=== PATIENT | male | born 1995 | race Caucasian/White ===

== ENCOUNTER 2020-09-12 10:56 | Emergency (ER) | payer MEDICAID ==
[~2020-09-12] VITALS: Ht 182.9 cm; Wt 93.4 kg
[2020-09-12 11:00] VITALS: BP 153/93
--- NOTE | 2020-09-12 11:07 | NUR ---
Pt ambulated to bed 12 with steady gait.
[2020-09-12] MEDS ORDERED: cefTRIAXone 250 MG in LIDOCAINE MPF 1% 0.9 ML IM ONE (11:10)
[2020-09-12] MEDS ORDERED: AZITHROMYCIN 250 MG TAB PO ONE (11:10)
--- NOTE | 2020-09-12 11:12 | NUR ---
25 y/o male c/o dysuria x 4 days, denies urinary frequency/hesitancy. Denies hemturia/discharge, fever or chills. Denies PMH NKA
[2020-09-12] MEDS ORDERED: LIDOCAINE MPF 1% 5 ML ONE (11:16)
[2020-09-12] MEDS ORDERED: cefTRIAXone 250 MG VIAL ONE (11:16)
[2020-09-12 11:48] LABS: APPEARANCE,URINE CLEAR (CLEAR); BILIRUBIN,URINE NEGATIVE (NEGATIVE); BLOOD, URINE NEGATIVE (NEGATIVE); COLOR,URINE YELLOW (YELLOW); LEUKOCYTE ESTERASE ,URINE NEGATIVE (NEGATIVE); NITRITE, URINE NEGATIVE (NEGATIVE); UGLUCOSE NEGATIVE (NEGATIVE)
[2020-09-12 11:57] VITALS: BP 153/93
--- NOTE | 2020-09-12 11:57 | NUR ---
Patient discharged with v/s stable. Written and verbal after care instructions given and explained. Patient alert, oriented and verbalized understanding of instructions. Ambulatory with steady gait. All questions addressed prior to discharge. ID band removed. Patient advised to follow up with PMD. Rx of Doxycycline 100mg capsule BID PO given. Patient educated on indication of medication including possible reaction and side effects. Opportunity to ask questions provided and answered.
[2020-09-14 08:07] LABS: CHLAMYDIA TRACHOMATIS AMP DNA Negative (Negative)
== END 2020-09-12 11:57 | disposition home or self-care (01) ==
LOC: MED 10:56
DX: N39.0 Urinary tract infection, site not specified (principal); A64 Unspecified sexually transmitted disease
CPT/HCPCS: 36415; 81003; 96372; 99283; J0696; J2001; 87491